=== PATIENT | male | born 1970 | race Two or more races ===

== ENCOUNTER 2019-09-27 09:19 | Outpatient (CLI) | payer OTHER ==
[~2019-09-27] VITALS: Ht 172.7 cm; Wt 79.4 kg
== END 2019-09-27 10:30 | disposition home or self-care (01) ==
LOC: OFIC 805 09:19
PROVIDERS: ATTEND Otolaryngology Otology & Neurotology
DX: H93.11 Tinnitus, right ear (principal); H90.41 Sensorineural hearing loss, unilateral, right ear, with unrestricted hearing on the contralateral side; H60.8X2 Other otitis externa, left ear; R42 Dizziness and giddiness

== ENCOUNTER → 2020-01-29 | Outpatient (CLI) | payer OTHER | END | disposition home or self-care (01) | LOC: OFIC 805 13:45 | PROVIDERS: ATTEND Otolaryngology Otology & Neurotology | DX: R42 Dizziness and giddiness (principal); S02.19XA Other fracture of base of skull, initial encounter for closed fracture; H90.41 Sensorineural hearing loss, unilateral, right ear, with unrestricted hearing on the contralateral side ==